=== PATIENT | male | born 1965 | race African-American/Black ===

== ENCOUNTER 2017-03-02 13:57 | Emergency (ER) | payer OTHER ==
[~2017-03-02] VITALS: Ht 188 cm; Wt 90.0 kg
[2017-03-02] MEDS ORDERED: AMLO10TA80 PO (14:01)
[2017-03-02] MEDS ORDERED: ENALAPRIL 2.5MG/2ML VIAL 2ML IV ONE (14:30)
[2017-03-02 14:53] LABS: CHLORIDE 104 mEq/L (98-107)
[2017-03-02 14:59] LABS: CARBON DIOXIDE 22 mEq/L (21-32)
[2017-03-02 16:00] VITALS: BP 147/80
== END 2017-03-02 16:11 | disposition home or self-care (01) ==
LOC: ER 13:58
DX: R51 Headache (principal); I10 Essential (primary) hypertension
CPT/HCPCS: 36415; 80048; 96374; 99284; J3490; Z7610